=== PATIENT | female | born 1955 | race Caucasian/White ===

== ENCOUNTER → 2024-06-10 11:07 | Outpatient (REF) | payer MEDICARE, OTHER, SELFPAY ==
[2024-06-10 12:50] LABS: ALT (SGPT) 27 U/L (0-35); AST (SGOT) 37 U/L (14-36); Albumin 4.3 g/dl (3.5-5.0); Alkaline Phosphatase 41 U/L (38-126); Blood Urea Nitrogen 23 mg/dl (7-17); Calcium 9.8 mg/dl (8.4-10.2); Carbon Dioxide 29 mmol/L (22-30); Chloride 104 mmol/L (98-107); Glucose 95 mg/dl (70-99); Sodium 142 mmol/L (135-145); Total Bilirubin 0.4 mg/dl (0.2-1.3); Total Protein 6.6 g/dl (6.3-8.2); eGFR > 60.00
[2024-06-10 12:56] LABS: Potassium 4.3 mmol/L (3.5-5.1)
== END ==
LOC: REG 11:07
PROVIDERS: ATTENDING PHYSICIAN Surgery; FAMILY PHYSICIAN Internal Medicine
DX: K80.20 Calculus of gallbladder without cholecystitis without obstruction (principal)
CPT/HCPCS: 36415; 80053

== ENCOUNTER → 2024-08-07 12:29 | Outpatient (REF) | payer MEDICARE, OTHER, SELFPAY | LOC: HWRAD 12:29 | PROVIDERS: ATTENDING PHYSICIAN Internal Medicine; REFERRING PHYSICIAN Surgery | DX: R10.9 Unspecified abdominal pain (principal); R19.8 Other specified symptoms and signs involving the digestive system and abdomen; R93.2 Abnormal findings on diagnostic imaging of liver and biliary tract | CPT/HCPCS: 74177; Q9967 ==

== ENCOUNTER 2024-10-02 13:38 | Outpatient (RCR) | payer MEDICARE, OTHER, SELFPAY ==
[2024-10-02 13:50] VITALS: BP 133/43
[2024-10-02] MEDS: RECLAST 100 IV (14:02)
== END 2024-10-02 23:59 | disposition home or self-care (01) ==
LOC: OID 13:38
PROVIDERS: ATTENDING PHYSICIAN Internal Medicine
DX: M81.0 Age-related osteoporosis without current pathological fracture (principal)
CPT/HCPCS: 96365; J3489

== ENCOUNTER 2025-05-31 07:51 | Emergency (ER) | payer MEDICARE, OTHER, SELFPAY ==
[2025-05-31 07:51] VITALS: BMI 23.9
[2025-05-31 08:01] VITALS: BP 131/59
[2025-05-31] MEDS: OMNIPAQUE 50 ML PO (08:45)
[2025-05-31] MEDS: NSS 1000 IV (08:52)
--- NOTE | 2025-05-31 08:54 | ED.GENMED ---
History of Present Illness
General
Chief Complaint: Abdominal Pain
Time Seen by Provider: 05/31/25 08:12
History of Present Illness
History of Present Illness:
69-year-old female with history of breast CA status postmastectomy and chemotherapy, last chemotherapy 11 days ago, presenting to the emergency department for abdominal pain. Patient report symptoms started 4 days ago. Pain is primarily in the
right lower area of the abdomen. Pain has been intermittent. Notes that it did start after she ate a meal. Does note chronic abdominal issues with chemotherapy, mainly diarrhea. She has had ongoing diarrhea which has not changed. Reports
abdominal surgery of a hernia repair. Denies fever, chest pain, difficulty breathing. Denies vomiting. She is concerned due to length of her symptoms. Denies additional acute medical complaints.
Past History
Past History
ED Past Medical History: HTN, Hypercholesterolemia and Psychiatric (depression)
ED Past Surgical History: Other (Hernia repair with abdominoplasty )
Social History
Tobacco: Non-smoker
Alcohol: Occasional
Personal: Partner
Living: with family
Employment: Retired
Phy Exam
Physical Exam
Physical Exam:
General: Well-appearing, no clinical signs of dehydration, nontoxic and in no acute distress
HEENT: protecting airway
Neck: appears supple
CV: Normal heart rate, regular rhythm
Resp: No accessory muscle use, no increased work of breathing, lungs clear to auscultation bilaterally
Abd: Soft and non-distended, focal tenderness to the right side of the abdomen without rebound or guarding
Extremities: No deformities, no swelling
Neuro: alert, no focal neurologic deficit
: deferred
Rectal: deferred
Psych: Normal affect
Skin: Intact
Course
Orders/Labs/Results
Orders:
Orders
05/31/25 08:32
CT Abd/pel W Iv And Oral Contr Urgent
Comment:
Reason For Exam: right sided pain
0.9% Sodium Chloride 1000 ml [Nss] 1,000 ml IV BOLUS
Iohexol [Omnipaque] See Protocol PO NOW STA
05/31/25 08:56
Complete Blood Count/With Diff Urgent
Comprehensive Metabolic Panel Urgent
Lipase Urgent
Urinalysis Reflex To Culture Urgent
Date Specimen was Collected: 05/31/25
Time Specimen was Collected: 08:50
Urine Microscopic Reflex Cult Urgent
Abnormal Lab Results
05/31/25
08:56
RBC 2.39 L 10^6/uL
(4.20-5.40)
Hgb 8.1 L g/dL
(12.0-16.0)
Hct 24.7 L %
(37.0-47.0)
MCV 103.3 H fL
(81.0-99.0)
MCH 33.9 H pg
(27.0-31.0)
MCHC 32.8 L g/dL
(33.0-37.0)
RDW 15.2 H %
(11.5-14.5)
MPV 10.5 H fL
(7.4-10.4)
Abs Immat Gran (auto) 0.1 H 10^3/uL
(0-0.05)
Absolute Neuts (auto) 8.5 H 10^3/uL
(1.4-6.5)
Absolute Lymphs (auto) 0.9 L 10^3/uL
(1.2-3.4)
Immature Gran % 1.1 H %
(0-0.5)
Neutrophils % 83.9 H %
(42.2-75.2)
Lymphocytes % 8.5 L %
(20.5-51.1)
Potassium 3.4 L mmol/L
(3.5-5.1)
Chloride 108 H mmol/L
(98-107)
BUN 4 L mg/dl
(7-17)
Creatinine 0.5 L mg/dL
(0.6-1.0)
Total Bilirubin < 0.1 L mg/dl
(0.2-1.3)
Total Protein 5.7 L g/dl
(6.3-8.2)
Urine Bacteria (Reflex) Few A
(Negative)
Urine Albumin (Reflex) 1+ A
(Neg - Trace)
05/31/25 08:56
05/31/25 08:56
Vital Signs
Initial and Last Documented VS:
Initial Vital Signs
Temp Pulse Resp BP Pulse Ox
98.6 F 75 15 131/59 99
05/31/25 08:01 05/31/25 08:01 05/31/25 08:01 05/31/25 08:01 05/31/25 08:01
Last Documented Vital Signs
Temp Pulse Resp BP Pulse Ox
98.6 F 75 15 131/59 99
05/31/25 08:01 05/31/25 08:01 05/31/25 08:01 05/31/25 08:01 05/31/25 08:58
MDM/Problems Addressed
MDM/Problems Addressed:
69-year-old female presenting to the emergency department for abdominal pain for 4 days. Vital signs are normal.
On exam patient is resting comfortably, no acute distress. She is afebrile, nontoxic. Focal tenderness to the right side of the abdomen. Differential considerations include colitis versus appendicitis versus diverticulitis versus cholelithiasis
versus cholecystitis. Plan for laboratory analysis and CT imaging. Ultimately suspect likely uncomplicated colitis, possibly secondary to chemotherapy. Patient declining any pain medications at this time. Will continue to monitor
12:10 - Patient's labs relatively unremarkable with the exception of anemia, likely secondary to chemotherapy. Patient notes known history of anemia. CT shows a possible gallbladder abnormality. Will obtain ultrasound to ensure no evidence of
acute cholecystitis
12:30 - When updating patient on her results, reports that she has had issues with her gallbladder in the past and has seen a surgeon, who deemed no indication for surgical removal. Patient does note that her pain is lower in quality. She does not
want to get an ultrasound or any additional workup for her gallbladder. Feel that this is reasonable, with CT showing some indication of mild colitis, consistent with symptoms. Patient feels well enough to go home. Ultimately feel that she is
stable for discharge, however return precautions communicated regarding acute cholecystitis and worsening colitis. Patient verbalized understanding
*Pulse Oximetry
SaO2: 99
Oxygen Mode of Delivery: Room air
Patient hypoxic: no
*Critical Care Note
Total Time (30-74mins, 75-104mins- exclusive of procedures): Not Applicable
ED Attending Note
-
Portions of this chart may have been created with voice recognition software.� Occasional wrong word or��sound alike� substitutions may have occurred due to the inherent limitations of voice recognition software.
Discharge Plan
Departure
Prescriptions:
No Action
losartan-hydrochlorothiazide 100-25 mg Tablet
1 tab PO DAILY
calcium carbonate [Calcium 500] 500 mg calcium (1,250 mg) Tablet,Chewable
500 mg PO DAILY
gabapentin 100 mg Capsule
100 mg PO TIDPRN PRN (Reason: nerve pain)
lithium carbonate 300 mg Tablet
300 mg PO QPM
escitalopram oxalate 20 mg Tablet
20 mg PO QPM
rosuvastatin 5 mg Tablet
5 mg PO QPM
multivit with min-folic acid 80 mcg Tablet,Chewable
1 tab PO DAILY
celecoxib [Celebrex] 100 mg Capsule
100 mg PO DAILY
pantoprazole 40 mg tablet,delayed release (DR/EC)
20 mg PO DAILY
Referrals:
Paradise Gonzales MD [Family Provider, Internal Medicine]
Interventions
Interventions:
*Risk Screen - Suicide Last Done: 05/31/25 08:04
*General Assessment Last Done: 05/31/25 09:05
*Neglect/Abuse Screening Last Done: 05/31/25 08:04
*ED- Fall Risk Assessment Last Done: 05/31/25 09:05
*ED COVID-19 Vaccine History Last Done: 05/31/25 09:05
[facility]-Tfaveb-[id number] Assessment Last Done: 05/31/25 09:07
Discharge Date and Time
Print Language: KAZAKH
[2025-05-31 09:21] LABS: Hematocrit 24.7 % (37.0-47.0); Hemoglobin 8.1 g/dL (12.0-16.0); Mean Corp Hgb Conc. 32.8 g/dL (33.0-37.0); Mean Corpuscular Volume 103.3 fL (81.0-99.0); Nucleated Red Blood Cells % 0.2 %; Platelet Count 150 10^3/uL (130-400); Red Cell Dist. Width 15.2 % (11.5-14.5)
[2025-05-31 09:29] LABS: ALT (SGPT) 15 U/L (0-35); AST (SGOT) 21 U/L (14-36); Albumin 3.6 g/dl (3.5-5.0); Alkaline Phosphatase 71 U/L (38-126); Blood Urea Nitrogen 4 mg/dl (7-17); Calcium 8.4 mg/dl (8.4-10.2); Carbon Dioxide 27 mmol/L (22-30); Chloride 108 mmol/L (98-107); Estimated Creatinine Clearance 69 ml/min; Glucose 92 mg/dl (70-99); Lipase 99 U/L (23-300); Potassium 3.4 mmol/L (3.5-5.1); Sodium 140 mmol/L (135-145); Total Protein 5.7 g/dl (6.3-8.2); eGFR > 60.00
[2025-05-31 09:34] LABS: Urine Character Clear (Clear)
[2025-05-31 09:44] LABS: Urine Squamous Cell 0-2 /LPF (Few)
[2025-05-31 09:45] LABS: Urine Red Blood Cell 0-2 /HPF (0-2); Urine White Cell 0-2 /HPF (0-5)
[2025-05-31 12:39] VITALS: BP 122/59
== END 2025-05-31 12:40 | disposition home or self-care (01) ==
LOC: EMR 07:51
PROVIDERS: EMERGENCY PHYSICIAN Student in an Organized Health Care Education/Training Program; FAMILY PHYSICIAN Internal Medicine
DX: K52.9 Noninfective gastroenteritis and colitis, unspecified (principal); D64.9 Anemia, unspecified; C50.919 Malignant neoplasm of unspecified site of unspecified female breast; I10 Essential (primary) hypertension; E78.00 Pure hypercholesterolemia, unspecified; F32.A Depression, unspecified; Z90.10 Acquired absence of unspecified breast and nipple
CPT/HCPCS: 99284; 96360; 74177; 80053; 81003; 81015; 83690; 85025; Q9967

== ENCOUNTER → 2025-06-01 09:11 | Outpatient (REF) | payer MEDICARE, OTHER, SELFPAY | LOC: RAD 09:11 | PROVIDERS: ATTENDING PHYSICIAN Internal Medicine Gastroenterology; FAMILY PHYSICIAN Internal Medicine; REFERRING PHYSICIAN Internal Medicine | DX: K21.00 Gastro-esophageal reflux disease with esophagitis, without bleeding (principal); R09.A2 Foreign body sensation, throat; R13.19 Other dysphagia | CPT/HCPCS: 74221 ==